=== PATIENT | male | born 2000 | race Caucasian/White ===

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

== ENCOUNTER 2022-06-29 13:43 | Emergency (ER) | payer OTHER, SELFPAY ==
[2022-06-29 13:44] VITALS: BP 138/74; PULSE 64; RESP 18; TEMP 36.1; O2SAT 100; BMI 19.3
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
== END 2022-06-29 14:11 | disposition home or self-care (01) ==
PROVIDERS: Emergency Provider Emergency Medicine; Visit Provider Emergency Medicine
DX: S16.1XXA Strain of muscle, fascia and tendon at neck level, initial encounter (principal); V89.2XXA Person injured in unspecified motor-vehicle accident, traffic, initial encounter
CPT/HCPCS: 99282